=== PATIENT | male | born 1960 | race Caucasian/White ===

== ENCOUNTER 2017-05-14 07:50 | Emergency (ER) | payer OTHER ==
[~2017-05-14] VITALS: Ht 180.3 cm; Wt 100.0 kg
[~2017-05-14 07:50] MED LIST: FOLIC ACID1 MG; GOOD NEIGHBOR325 MG PO; HYDROCHLOROTHIA1 T14 PO; IBUPROFEN200 M1 PO; IRON65 M1; LOPRESSOR50 MG PO; NORCO 325 MG-101 TA1 PO; NORCO 325 MG-51 TA1 PO; PREDNISONE20 MG PO; VITAMIN C500 MG PO; ZYLOPRIM 300MG300 MG PO
[2017-05-14 08:26] LABS: EOS # 0.1 (0.04-0.40); EOS % 2.4 % (0.0-4.0); HEMATOCRIT 36.5 % (42.0-52.0); HEMOGLOBIN 12.1 g/dL (13.5-18.0); MEAN CELL VOLUME 101 fl (78-100); MEAN CORPUSCULAR HEMOGLOBIN 34 pg (27-31); MEAN CORPUSCULAR HGB CONC 33 g/dL (33-37); MONO # 0.5 (0.20-0.80); NEU # 2.4 (1.40-6.50); PLATELET COUNT 171 K/mm3 (130-400); RED CELL DISTRIBUTION WIDTH 13.1 % (11.5-14.5)
[2017-05-14 08:39] LABS: ALBUMIN 3.5 g/dL (3.5-5.0); BUN/CREATININE RATIO 30.8 (6.0-26.0); CALCIUM 8.5 mg/dL (8.4-10.2); TOTAL BILIRUBIN 0.8 mg/dL (0.2-1.3); TOTAL PROTEIN 6.6 g/dL (6.3-8.2)
[2017-05-14 08:47] LABS: POTASSIUM 3.8 mmol/L (3.6-5.0)
[2017-05-14 11:12] VITALS: BP 117/83
[2017-05-15] MEDS ORDERED: PRILOSEC 20MG20 MG PO (10:45)
== END 2017-05-14 10:57 | disposition home or self-care (01) ==
LOC: ED 07:50
PROVIDERS: Nurse Practitioner Primary Care
DX: K29.21 Alcoholic gastritis with bleeding (principal); K44.9 Diaphragmatic hernia without obstruction or gangrene; I10 Essential (primary) hypertension; F10.10 Alcohol abuse, uncomplicated; R01.1 Cardiac murmur, unspecified
CPT/HCPCS: C9113; J7030; Q9967

== ENCOUNTER 2017-05-15 10:31 | Emergency (ER) | payer OTHER ==
[~2017-05-15] VITALS: Ht 180.3 cm; Wt 97.9 kg
[2017-05-15] MEDS ORDERED: PRILOSEC 20MG20 MG PO (10:45)
[2017-05-15 11:26] LABS: BASO # 0.1 (0.02-0.10); EOS # 0.2 (0.04-0.40); EOS % 3.1 % (0.0-4.0); HEMOGLOBIN 7.8 g/dL (13.5-18.0); LYMPH# 1.9 (1.50-4.00); MEAN CELL VOLUME 103 fl (78-100); MEAN CORPUSCULAR HEMOGLOBIN 34 pg (27-31); MEAN CORPUSCULAR HGB CONC 33 g/dL (33-37); MEAN PLATELET VOLUME 10.3 fl (7.4-10.4); MONO # 0.5 (0.20-0.80); NEU # 3.3 (1.40-6.50); PLATELET COUNT 138 K/mm3 (130-400); RED BLOOD COUNT 2.32 M/mm3 (4.20-5.60); WHITE BLOOD COUNT 5.9 K/mm3 (4.8-10.8)
[2017-05-15 11:28] LABS: ALBUMIN 2.7 g/dL (3.5-5.0); CALCIUM 7.8 mg/dL (8.4-10.2); POTASSIUM 3.9 mmol/L (3.6-5.0); TOTAL BILIRUBIN 0.5 mg/dL (0.2-1.3)
[2017-05-15 11:37] LABS: PROTHROMBIN TIME 11.4 SECONDS (9.0-12.0)
[2017-05-15 12:31] VITALS: BP 102/64
== END 2017-05-15 12:39 | disposition short-term general hospital (02) ==
LOC: ED 10:31
PROVIDERS: Physician Assistant
DX: K92.2 Gastrointestinal hemorrhage, unspecified (principal); I10 Essential (primary) hypertension; K21.9 Gastro-esophageal reflux disease without esophagitis; K44.9 Diaphragmatic hernia without obstruction or gangrene; F10.10 Alcohol abuse, uncomplicated; R01.1 Cardiac murmur, unspecified
CPT/HCPCS: J3430; J7120

== ENCOUNTER → 2017-05-22 | Outpatient (CLI) | payer OTHER ==
[2017-05-15 12:31] VITALS: BP 102/64
[~2017-05-22] MED LIST changes: +PRILOSEC 20MG20 MG PO
[2017-05-22 18:21] LABS: HEMATOCRIT 30.5 % (42.0-52.0); HEMOGLOBIN 9.6 g/dL (13.5-18.0); MEAN CELL VOLUME 100 fl (78-100); MEAN CORPUSCULAR HEMOGLOBIN 32 pg (27-31); MEAN CORPUSCULAR HGB CONC 32 g/dL (33-37); MEAN PLATELET VOLUME 10.4 fl (7.4-10.4); PLATELET COUNT 491 K/mm3 (130-400); RED BLOOD COUNT 3.05 M/mm3 (4.20-5.60); RED CELL DISTRIBUTION WIDTH 14.7 % (11.5-14.5); WHITE BLOOD COUNT 9.8 K/mm3 (4.8-10.8)
[2017-05-22 18:23] LABS: ALBUMIN 3.6 g/dL (3.5-5.0); POTASSIUM 4.1 mmol/L (3.6-5.0); TOTAL BILIRUBIN 0.5 mg/dL (0.2-1.3); TOTAL PROTEIN 7.2 g/dL (6.3-8.2)
[2017-05-22 21:31] LABS: LYMPHOCYTE 27 % (20-51); MONOCYTE 10 % (3-10); NEUTROPHILS 59 % (42-75); POLYCHROMASIA 1+
== END ==
LOC: LAB 16:35
PROVIDERS: Internal Medicine
DX: R79.0 Abnormal level of blood mineral (principal); K25.0 Acute gastric ulcer with hemorrhage

== ENCOUNTER → 2017-05-28 | Outpatient (CLI) | payer OTHER ==
[2017-05-15 12:31] VITALS: BP 102/64
[2017-05-28 11:46] LABS: BASO # 0.1 (0.02-0.10); EOS % 0.2 % (0.0-4.0); HEMATOCRIT 34.8 % (42.0-52.0); HEMOGLOBIN 11.2 g/dL (13.5-18.0); LYMPH# 2.6 (1.50-4.00); MEAN CELL VOLUME 100 fl (78-100); MEAN CORPUSCULAR HEMOGLOBIN 32 pg (27-31); MEAN CORPUSCULAR HGB CONC 32 g/dL (33-37); RED BLOOD COUNT 3.49 M/mm3 (4.20-5.60); RED CELL DISTRIBUTION WIDTH 17.4 % (11.5-14.5); WHITE BLOOD COUNT 14.5 K/mm3 (4.8-10.8)
[2017-05-28 11:48] LABS: MONO # 1.6 (0.20-0.80); NEU # 9.8 (1.40-6.50); PLATELET COUNT 694 K/mm3 (130-400)
== END ==
LOC: LAB 11:10
PROVIDERS: Internal Medicine
DX: R79.0 Abnormal level of blood mineral (principal)

== ENCOUNTER → 2017-06-07 | Outpatient (CLI) | payer OTHER ==
[2017-05-15 12:31] VITALS: BP 102/64
[2017-06-07 15:55] LABS: BASO # 0.1 (0.02-0.10); EOS # 0.3 (0.04-0.40); HEMATOCRIT 41.2 % (42.0-52.0); HEMOGLOBIN 12.7 g/dL (13.5-18.0); LYMPH# 1.9 (1.50-4.00); MEAN CELL VOLUME 101 fl (78-100); MEAN CORPUSCULAR HEMOGLOBIN 31 pg (27-31); MEAN CORPUSCULAR HGB CONC 31 g/dL (33-37); MONO # 0.6 (0.20-0.80); NEU # 3.3 (1.40-6.50); PLATELET COUNT 302 K/mm3 (130-400); RED CELL DISTRIBUTION WIDTH 16.4 % (11.5-14.5); WHITE BLOOD COUNT 6.3 K/mm3 (4.8-10.8)
[2017-06-07 16:02] LABS: EOS % 5.3 % (0.0-4.0)
== END ==
LOC: LAB 15:39
PROVIDERS: Internal Medicine
DX: R79.0 Abnormal level of blood mineral (principal)

== ENCOUNTER → 2018-06-21 | Outpatient (CLI) | payer OTHER ==
[2018-06-21 10:49] LABS: EOS # 0.2 (0.04-0.40); HEMATOCRIT 42.4 % (42.0-52.0); HEMOGLOBIN 14.4 g/dL (13.5-18.0); LYMPH# 1.4 (1.50-4.00); MEAN CELL VOLUME 102 fl (78-100); MEAN CORPUSCULAR HEMOGLOBIN 35 pg (27-31); MEAN CORPUSCULAR HGB CONC 34 g/dL (33-37); MEAN PLATELET VOLUME 10.3 fl (7.4-10.4); MONO # 0.5 (0.20-0.80); PLATELET COUNT 161 K/mm3 (130-400); RED BLOOD COUNT 4.14 M/mm3 (4.20-5.60); RED CELL DISTRIBUTION WIDTH 12.4 % (11.5-14.5); WHITE BLOOD COUNT 4.1 K/mm3 (4.8-10.8)
[2018-06-21 11:17] LABS: EOS % 5.1 % (0.0-4.0)
[2018-06-21 12:13] LABS: ERYTHROCYTE SEDIMENTATION RATE 2 mm/hr (0-20)
[2018-06-21 12:45] LABS: ALBUMIN 4.2 g/dL (3.5-5.0); POTASSIUM 4.5 mmol/L (3.6-5.0); TOTAL BILIRUBIN 0.6 mg/dL (0.2-1.3); TOTAL PROTEIN 7.3 g/dL (6.3-8.2)
[2018-06-21 23:52] LABS: TESTOSTERONE 400 ng/dL (221-716)
== END ==
LOC: LAB 10:28
PROVIDERS: Internal Medicine
DX: Z12.5 Encounter for screening for malignant neoplasm of prostate (principal); Z00.00 Encounter for general adult medical examination without abnormal findings

== ENCOUNTER → 2018-07-01 | Outpatient (CLI) | payer OTHER | LOC: VAS 07:18 | DX: R93.5 Abnormal findings on diagnostic imaging of other abdominal regions, including retroperitoneum (principal); R74.0 Nonspecific elevation of levels of transaminase and lactic acid dehydrogenase [LDH] ==

== ENCOUNTER 2019-09-25 10:48 | Emergency (ER) | payer OTHER ==
[~2019-09-25] VITALS: Ht 177.8 cm; Wt 110.9 kg
[~2019-09-25 10:48] MED LIST changes: -AMLODIPINE BESYL5 MG PO; -AZITHROMYCIN 250MGPK PO; -LOPRESSOR 550 MG/TAB PO; -PANTOPRAZOLE SO40 MG PO; -PROAIR HFA0.09 MG/AC IH; -ZYLOPRIM 100MG100 MG PO
[2019-09-25 11:32] LABS: HEMATOCRIT 49.7 % (42.0-52.0); HEMOGLOBIN 16.9 g/dL (13.5-18.0); MEAN CELL VOLUME 98 fl (78-100); MEAN CORPUSCULAR HEMOGLOBIN 33 pg (27-31); MEAN CORPUSCULAR HGB CONC 34 g/dL (33-37); MEAN PLATELET VOLUME 9.5 fl (7.4-10.4); PLATELET COUNT 201 K/mm3 (130-400); RED BLOOD COUNT 5.09 M/mm3 (4.20-5.60); RED CELL DISTRIBUTION WIDTH 13.1 % (11.5-14.5); WHITE BLOOD COUNT 8.5 K/mm3 (4.8-10.8)
[2019-09-25] MEDS ORDERED: PANTOPRAZOLE SO40 MG PO (11:34)
[2019-09-25] MEDS ORDERED: ZYLOPRIM 100MG100 MG PO (11:34)
[2019-09-25] MEDS ORDERED: AMLODIPINE BESYL5 MG PO (11:34)
[2019-09-25] MEDS ORDERED: LOPRESSOR 550 MG/TAB PO (11:35)
[2019-09-25 11:41] LABS: ALBUMIN 4.1 g/dL (3.5-5.0); POTASSIUM 4.1 mmol/L (3.5-5.1); SODIUM 131 mmol/L (136-145)
[2019-09-25 11:42] LABS: CALCIUM 9.2 mg/dL (8.3-10.5)
[2019-09-25 11:43] LABS: GLUCOSE 108 mg/dL (75-110); TOTAL PROTEIN 7.8 g/dL (6.4-8.3)
[2019-09-25 11:45] LABS: TOTAL BILIRUBIN 1.3 mg/dL (0.2-1.2)
[2019-09-25 11:47] LABS: D-DIMER 0.31 mg/L FEU (0.15-0.50)
[2019-09-25 11:49] LABS: AST-SGOT 69 U/L (5-34)
[2019-09-25 11:50] LABS: ALT/SGPT 49 U/L (0-55)
[2019-09-25 11:51] LABS: LYMPHOCYTE 21 % (20-51); MONOCYTE 15 % (3-10); NEUTROPHILS 63 % (42-75)
[2019-09-25 11:54] LABS: URINE APPEARANCE CLEAR; URINE BILIRUBIN NEGATIVE (NEGATIVE); URINE BLOOD TRACE (NEGATIVE); URINE COLOR ORANGE; URINE GLUCOSE NEGATIVE (NEGATIVE); URINE KETONE NEGATIVE (NEGATIVE); URINE NITRATE NEGATIVE (NEGATIVE); URINE PROTEIN(semi-quant) TRACE mg/dL (NEGATIVE); URINE UROBILINOGEN NORMAL (NORMAL)
[2019-09-25 11:55] LABS: URINE LEUKOCYTE ESTERASE TRACE (NEGATIVE); URINE MUCUS PRESENT (NOT PRESENT)
[2019-09-25 11:56] LABS: CARBON DIOXIDE 16 mmol/L (22-29)
[2019-09-25 12:01] LABS: TROPONIN-I < 0.03 ng/mL (<0.030)
[2019-09-25] MEDS ORDERED: AZITHROMYCIN 250MGPK PO (15:32)
[2019-09-25] MEDS ORDERED: PROAIR HFA0.09 MG/AC IH (15:35)
[2019-09-25 16:22] VITALS: BP 133/94
== END 2019-09-25 16:00 | disposition home or self-care (01) ==
LOC: ED 10:48
PROVIDERS: Physician Assistant
DX: R05 Cough (principal); J18.9 Pneumonia, unspecified organism; R06.02 Shortness of breath; I10 Essential (primary) hypertension; K21.9 Gastro-esophageal reflux disease without esophagitis; Z20.828 Contact with and (suspected) exposure to other viral communicable diseases
CPT/HCPCS: J7120

== ENCOUNTER → 2019-09-25 | Outpatient (CLI) | payer OTHER ==
[~2019-09-25] MED LIST changes: +AMLODIPINE BESYL5 MG PO; +AZITHROMYCIN 250MGPK PO; +LOPRESSOR 550 MG/TAB PO; +PANTOPRAZOLE SO40 MG PO; +PROAIR HFA0.09 MG/AC IH; +ZYLOPRIM 100MG100 MG PO
== END ==
LOC: LAB 08:33
DX: R05 Cough (principal); R06.02 Shortness of breath; R07.89 Other chest pain; R19.7 Diarrhea, unspecified; R42 Dizziness and giddiness; R51 Headache

== ENCOUNTER → 2020-01-02 | Outpatient (CLI) | payer OTHER ==
[~2020-01-02] MED LIST changes: +AMLODIPINE BESYL5 MG PO; +AZITHROMYCIN 250MGPK PO; +LOPRESSOR 550 MG/TAB PO; +PANTOPRAZOLE SO40 MG PO; +PROAIR HFA0.09 MG/AC IH; +ZYLOPRIM 100MG100 MG PO
[2020-01-02 14:44] LABS: EOS # 0.3 (0.04-0.40); EOS % 4.4 % (0.0-4.0); HEMATOCRIT 41.1 % (42.0-52.0); HEMOGLOBIN 14.4 g/dL (13.5-18.0); LYMPH# 2.3 (1.50-4.00); MEAN CELL VOLUME 101 fl (78-100); MEAN CORPUSCULAR HGB CONC 35 g/dL (33-37); MEAN PLATELET VOLUME 9.5 fl (7.4-10.4); MONO # 0.6 (0.20-0.80); NEU # 2.4 (1.40-6.50); PLATELET COUNT 190 K/mm3 (130-400); RED BLOOD COUNT 4.06 M/mm3 (4.20-5.60); RED CELL DISTRIBUTION WIDTH 12.7 % (11.5-14.5); WHITE BLOOD COUNT 5.6 K/mm3 (4.8-10.8)
[2020-01-02 14:45] LABS: MEAN CORPUSCULAR HEMOGLOBIN 36 pg (27-31)
[2020-01-02 14:47] LABS: ALBUMIN 3.7 g/dL (3.5-5.0); POTASSIUM 4.3 mmol/L (3.5-5.1)
[2020-01-02 14:48] LABS: CALCIUM 8.3 mg/dL (8.3-10.5)
[2020-01-02 14:50] LABS: TOTAL PROTEIN 6.6 g/dL (6.4-8.3)
[2020-01-02 14:51] LABS: TOTAL BILIRUBIN 0.4 mg/dL (0.2-1.2)
[2020-01-02 15:36] LABS: ERYTHROCYTE SEDIMENTATION RATE 6 mm/hr (0-20)
== END ==
LOC: LAB 14:24
PROVIDERS: Internal Medicine
DX: Z00.00 Encounter for general adult medical examination without abnormal findings (principal); Z12.5 Encounter for screening for malignant neoplasm of prostate; M47.816 Spondylosis without myelopathy or radiculopathy, lumbar region; M43.16 Spondylolisthesis, lumbar region; R06.02 Shortness of breath; R06.00 Dyspnea, unspecified

== ENCOUNTER → 2020-01-16 | Outpatient (CLI) | payer OTHER | LOC: CARDREHAB 08:53 | DX: R06.02 Shortness of breath (principal) | CPT/HCPCS: A9500 ==

== ENCOUNTER → 2020-01-20 | Outpatient (CLI) | payer OTHER | LOC: LAB 08:58 | DX: Z20.828 Contact with and (suspected) exposure to other viral communicable diseases (principal) ==

== ENCOUNTER → 2020-02-13 | Outpatient (CLI) | payer OTHER | LOC: RAD 09:16 | DX: M51.36 Other intervertebral disc degeneration, lumbar region (principal); M43.16 Spondylolisthesis, lumbar region; R20.2 Paresthesia of skin ==

== ENCOUNTER → 2020-02-17 | Outpatient (CLI) | payer OTHER | LOC: RAD 09:01 | DX: M48.061 Spinal stenosis, lumbar region without neurogenic claudication (principal); M43.16 Spondylolisthesis, lumbar region; M51.26 Other intervertebral disc displacement, lumbar region; R20.2 Paresthesia of skin ==

== ENCOUNTER → 2020-03-12 | Outpatient (CLI) | payer OTHER | LOC: LAB 08:31 | DX: R06.02 Shortness of breath (principal) ==

== ENCOUNTER 2020-05-10 12:37 | Emergency (ER) | payer OTHER ==
[~2020-05-10] VITALS: Ht 180.3 cm; Wt 109.1 kg
[2020-05-10] MEDS ORDERED: METOPROLOL TAR100 M1 PO (13:13)
[2020-05-10] MEDS ORDERED: BUDESONIDE-FO10.2 GM (13:15)
[2020-05-10 13:55] LABS: HEMATOCRIT 47.6 % (42.0-52.0); HEMOGLOBIN 16.8 g/dL (13.5-18.0); MEAN CELL VOLUME 95 fl (78-100); MEAN CORPUSCULAR HEMOGLOBIN 34 pg (27-31); MEAN CORPUSCULAR HGB CONC 35 g/dL (33-37); MEAN PLATELET VOLUME 10.2 fl (7.4-10.4); PLATELET COUNT 278 K/mm3 (130-400); RED BLOOD COUNT 4.99 M/mm3 (4.20-5.60); RED CELL DISTRIBUTION WIDTH 12.3 % (11.5-14.5); WHITE BLOOD COUNT 8.6 K/mm3 (4.8-10.8)
[2020-05-10 13:57] LABS: ALBUMIN 3.7 g/dL (3.5-5.0); POTASSIUM 3.8 mmol/L (3.5-5.1); SODIUM 127 mmol/L (136-145)
[2020-05-10 13:58] LABS: CALCIUM 9.1 mg/dL (8.3-10.5)
[2020-05-10 14:00] LABS: GLUCOSE 114 mg/dL (75-110); TOTAL PROTEIN 7.8 g/dL (6.4-8.3)
[2020-05-10 14:01] LABS: CARBON DIOXIDE 18 mmol/L (22-29)
[2020-05-10 14:02] LABS: TOTAL BILIRUBIN 1.1 mg/dL (0.2-1.2)
[2020-05-10 14:04] LABS: D-DIMER 1.08 mg/L FEU (0.15-0.50)
[2020-05-10 14:05] LABS: AST-SGOT 40 U/L (5-34)
[2020-05-10 14:06] LABS: ALT/SGPT 38 U/L (0-55)
[2020-05-10 14:07] LABS: LYMPHOCYTE 11 % (20-51); NEUTROPHILS 70 % (42-75)
[2020-05-10 14:08] LABS: MONOCYTE 12 % (3-10)
[2020-05-10 14:24] LABS: TROPONIN-I < 0.03 ng/mL (<0.030)
[2020-05-10 15:04] LABS: ERYTHROCYTE SEDIMENTATION RATE 82 mm/hr (0-20)
[2020-05-10] MEDS ORDERED: TESSALON PERLE100 M1 PO (16:51)
[2020-05-10 17:22] VITALS: BP 113/84
== END 2020-05-10 17:22 | disposition home or self-care (01) ==
LOC: ED 12:37
PROVIDERS: Physician Assistant
DX: U07.1 COVID-19 (principal); M10.9 Gout, unspecified; Z79.51 Long term (current) use of inhaled steroids
CPT/HCPCS: J7030; Q9967

== ENCOUNTER → 2020-07-14 | Outpatient (CLI) | payer OTHER ==
[~2020-07-14] MED LIST changes: +BUDESONIDE-FO10.2 GM; +METOPROLOL TAR100 M1 PO; +TESSALON PERLE100 M1 PO
[2020-07-14 09:43] LABS: ALBUMIN 3.9 g/dL (3.5-5.0)
[2020-07-14 09:44] LABS: POTASSIUM 4.1 mmol/L (3.5-5.1)
[2020-07-14 09:45] LABS: CALCIUM 8.4 mg/dL (8.3-10.5)
[2020-07-14 09:46] LABS: TOTAL PROTEIN 7.6 g/dL (6.4-8.3)
[2020-07-14 09:48] LABS: TOTAL BILIRUBIN 0.9 mg/dL (0.2-1.2)
[2020-07-14 10:38] LABS: PROTHROMBIN TIME 11.1 SECONDS (9.0-12.0)
[2020-07-14 10:45] LABS: URINE APPEARANCE CLEAR; URINE BILIRUBIN NEGATIVE (NEGATIVE); URINE BLOOD NEGATIVE (NEGATIVE); URINE COLOR YELLOW; URINE GLUCOSE NEGATIVE (NEGATIVE); URINE KETONE NEGATIVE (NEGATIVE); URINE LEUKOCYTE ESTERASE NEGATIVE (NEGATIVE); URINE NITRATE NEGATIVE (NEGATIVE); URINE PROTEIN(semi-quant) TRACE mg/dL (NEGATIVE); URINE UROBILINOGEN NORMAL (NORMAL)
[2020-07-14 10:46] LABS: HEMOGLOBIN 16.5 g/dL (13.5-18.0); RED BLOOD COUNT 4.84 M/mm3 (4.20-5.60); RED CELL DISTRIBUTION WIDTH 13.8 % (11.5-14.5)
== END ==
LOC: LAB 08:59
PROVIDERS: Internal Medicine
DX: M43.16 Spondylolisthesis, lumbar region (principal)

== ENCOUNTER → 2020-12-04 | Outpatient (CLI) | payer OTHER | LOC: RAD 08:07 | DX: S82.841A Displaced bimalleolar fracture of right lower leg, initial encounter for closed fracture (principal) ==

== ENCOUNTER → 2021-06-03 | Outpatient (CLI) | payer OTHER ==
[2021-06-03 11:32] LABS: BASO # 0.05 K/mm3 (0.02-0.10); EOS # 0.11 K/mm3 (0.04-0.40); EOS % 1.9 % (0.0-4.0); HEMATOCRIT 49.6 % (42.0-52.0); HEMOGLOBIN 16.8 g/dL (13.5-18.0); LYMPH# 0.94 K/mm3 (1.50-4.00); MEAN CELL VOLUME 102 fl (78-100); MEAN CORPUSCULAR HEMOGLOBIN 34 pg (27-31); MEAN CORPUSCULAR HGB CONC 34 g/dL (33-37); MEAN PLATELET VOLUME 10.1 fl (7.4-10.4); MONO # 0.68 K/mm3 (0.20-0.80); NEU # 3.87 K/mm3 (1.40-6.50); PLATELET COUNT 244 K/mm3 (130-400); RED BLOOD COUNT 4.88 M/mm3 (4.20-5.60); RED CELL DISTRIBUTION WIDTH 12.1 % (11.5-14.5); WHITE BLOOD COUNT 5.7 K/mm3 (4.8-10.8)
[2021-06-03 11:41] LABS: ALBUMIN 4.2 g/dL (3.5-5.0); POTASSIUM 5.5 mmol/L (3.5-5.1)
[2021-06-03 11:42] LABS: CALCIUM 9.9 mg/dL (8.3-10.5)
[2021-06-03 11:43] LABS: TOTAL PROTEIN 7.9 g/dL (6.4-8.3)
[2021-06-03 11:45] LABS: TOTAL BILIRUBIN 1.1 mg/dL (0.2-1.2)
[2021-06-03 12:45] LABS: ERYTHROCYTE SEDIMENTATION RATE 16 mm/hr (0-20)
== END ==
LOC: LAB 07:58
PROVIDERS: Internal Medicine
DX: Z00.00 Encounter for general adult medical examination without abnormal findings (principal)

== ENCOUNTER → 2021-06-28 | Outpatient (CLI) | payer OTHER | LOC: LAB 08:45 | DX: Z00.00 Encounter for general adult medical examination without abnormal findings (principal); G47.19 Other hypersomnia; L98.9 Disorder of the skin and subcutaneous tissue, unspecified; I77.810 Thoracic aortic ectasia; I10 Essential (primary) hypertension; Q20.8 Other congenital malformations of cardiac chambers and connections; I34.0 Nonrheumatic mitral (valve) insufficiency; M48.062 Spinal stenosis, lumbar region with neurogenic claudication ==

== ENCOUNTER → 2021-08-04 | Day surgery (SDC) | payer OTHER | LOC: MSO 07:09 | DX: Z12.11 Encounter for screening for malignant neoplasm of colon (principal); D12.0 Benign neoplasm of cecum; D12.3 Benign neoplasm of transverse colon; K57.30 Diverticulosis of large intestine without perforation or abscess without bleeding; Z79.899 Other long term (current) drug therapy; Z87.891 Personal history of nicotine dependence | CPT/HCPCS: 00811; J2704; J7120 ==

== ENCOUNTER → 2021-08-10 | Outpatient (CLI) | payer OTHER | LOC: LAB 08:38 | DX: Q20.8 Other congenital malformations of cardiac chambers and connections (principal); M48.062 Spinal stenosis, lumbar region with neurogenic claudication; I34.0 Nonrheumatic mitral (valve) insufficiency; I10 Essential (primary) hypertension; I77.810 Thoracic aortic ectasia; D12.6 Benign neoplasm of colon, unspecified; L98.9 Disorder of the skin and subcutaneous tissue, unspecified; G47.19 Other hypersomnia; K90.9 Intestinal malabsorption, unspecified; E55.9 Vitamin D deficiency, unspecified ==

== ENCOUNTER → 2021-10-25 | Outpatient (CLI) | payer OTHER | LOC: VAS 07:51 → RAD 08:00 | DX: Q24.8 Other specified congenital malformations of heart (principal) ==

== ENCOUNTER → 2023-01-22 | Outpatient (CLI) | payer MEDICARE, OTHER ==
[~2023-01-22] MED LIST changes: +ATORVASTATIN CA40 MG PO; +MAXZIDE-25MG TA1 TAB PO; +VITAMIN D21250 MCG PO
[2023-01-22 09:03] LABS: BASO # 0.04 K/mm3 (0.02-0.10); EOS # 0.18 K/mm3 (0.04-0.40); EOS % 2.4 % (0.0-4.0); LYMPH# 1.72 K/mm3 (1.50-4.00); MEAN CELL VOLUME 106 fl (78-100); MEAN CORPUSCULAR HEMOGLOBIN 35 pg (27-31); MEAN CORPUSCULAR HGB CONC 33 g/dL (33-37); MEAN PLATELET VOLUME 9.7 fl (7.4-10.4); MONO # 0.78 K/mm3 (0.20-0.80); NEU # 4.71 K/mm3 (1.40-6.50); PLATELET COUNT 201 K/mm3 (130-400); RED BLOOD COUNT 3.98 M/mm3 (4.20-5.60); WHITE BLOOD COUNT 7.5 K/mm3 (4.8-10.8)
[2023-01-22 09:24] LABS: ALBUMIN 3.5 g/dL (3.4-4.8); POTASSIUM 3.9 mmol/L (3.5-5.1)
[2023-01-22 09:25] LABS: CALCIUM 8.9 mg/dL (8.3-10.5)
[2023-01-22 09:27] LABS: TOTAL PROTEIN 6.8 g/dL (6.2-8.1)
[2023-01-22 09:28] LABS: TOTAL BILIRUBIN 1.4 mg/dL (0.2-1.2)
== END ==
LOC: LAB 08:44
PROVIDERS: Internal Medicine
DX: I10 Essential (primary) hypertension (principal)

== ENCOUNTER → 2023-04-11 | Outpatient (CLI) | payer MEDICARE, OTHER ==
[2023-04-11 08:21] LABS: BASO # 0.06 K/mm3 (0.02-0.10); EOS # 0.31 K/mm3 (0.04-0.40); EOS % 5.5 % (0.0-4.0); HEMATOCRIT 41.3 % (42.0-52.0); HEMOGLOBIN 13.4 g/dL (13.5-18.0); LYMPH# 1.91 K/mm3 (1.50-4.00); MEAN CELL VOLUME 107 fl (78-100); MEAN CORPUSCULAR HEMOGLOBIN 35 pg (27-31); MEAN CORPUSCULAR HGB CONC 32 g/dL (33-37); MEAN PLATELET VOLUME 9.6 fl (7.4-10.4); MONO # 0.62 K/mm3 (0.20-0.80); NEU # 2.73 K/mm3 (1.40-6.50); PLATELET COUNT 333 K/mm3 (130-400); RED BLOOD COUNT 3.85 M/mm3 (4.20-5.60); RED CELL DISTRIBUTION WIDTH 14.4 % (11.5-14.5); WHITE BLOOD COUNT 5.7 K/mm3 (4.8-10.8)
[2023-04-11 08:27] LABS: ALBUMIN 3.3 g/dL (3.4-4.8)
[2023-04-11 08:28] LABS: CALCIUM 8.8 mg/dL (8.3-10.5)
[2023-04-11 08:32] LABS: TOTAL BILIRUBIN 1.2 mg/dL (0.2-1.2)
[2023-04-11 08:43] LABS: URINE APPEARANCE CLEAR; URINE BILIRUBIN NEGATIVE (NEGATIVE); URINE BLOOD NEGATIVE (NEGATIVE); URINE COLOR YELLOW; URINE GLUCOSE NEGATIVE (NEGATIVE); URINE KETONE NEGATIVE (NEGATIVE); URINE LEUKOCYTE ESTERASE NEGATIVE (NEGATIVE); URINE NITRATE NEGATIVE (NEGATIVE); URINE PROTEIN(semi-quant) 2+ (NEGATIVE); URINE UROBILINOGEN NORMAL (NORMAL); URINE WBC 0-1 /hpf (0-3)
[2023-04-11 10:12] LABS: ERYTHROCYTE SEDIMENTATION RATE 35 mm/hr (0-20)
== END ==
LOC: LAB 08:06
PROVIDERS: Internal Medicine
DX: R10.11 Right upper quadrant pain (principal)

== ENCOUNTER → 2023-06-07 | Outpatient (CLI) | payer MEDICARE, OTHER ==
[2023-06-07 11:46] LABS: BASO # 0.01 K/mm3 (0.02-0.10); EOS # 0.25 K/mm3 (0.04-0.40); EOS % 4.5 % (0.0-4.0); HEMATOCRIT 40.1 % (42.0-52.0); HEMOGLOBIN 13.2 g/dL (13.5-18.0); LYMPH# 2.19 K/mm3 (1.50-4.00); MEAN CELL VOLUME 99 fl (78-100); MEAN CORPUSCULAR HEMOGLOBIN 33 pg (27-31); MEAN CORPUSCULAR HGB CONC 33 g/dL (33-37); MEAN PLATELET VOLUME 9.9 fl (7.4-10.4); MONO # 0.43 K/mm3 (0.20-0.80); NEU # 2.72 K/mm3 (1.40-6.50); PLATELET COUNT 236 K/mm3 (130-400); RED BLOOD COUNT 4.06 M/mm3 (4.20-5.60); RED CELL DISTRIBUTION WIDTH 13.3 % (11.5-14.5); WHITE BLOOD COUNT 5.6 K/mm3 (4.8-10.8)
[2023-06-07 11:55] LABS: ALBUMIN 3.7 g/dL (3.4-4.8)
[2023-06-07 11:57] LABS: TOTAL PROTEIN 6.8 g/dL (6.2-8.1)
[2023-06-07 11:59] LABS: TOTAL BILIRUBIN 0.6 mg/dL (0.2-1.2)
[2023-06-07 12:04] LABS: MAGNESIUM 2.16 mg/dL (1.60-2.60)
[2023-06-07 21:04] LABS: FOLATE (FOLIC ACID) 8.9 ng/mL (2.0-20.0)
== END ==
LOC: LAB 11:27
PROVIDERS: Internal Medicine
DX: I25.10 Atherosclerotic heart disease of native coronary artery without angina pectoris (principal); E78.2 Mixed hyperlipidemia; E83.110 Hereditary hemochromatosis; K85.20 Alcohol induced acute pancreatitis without necrosis or infection; R20.2 Paresthesia of skin

== ENCOUNTER → 2023-12-22 | Outpatient (CLI) | payer MEDICARE, OTHER | LOC: RAD 07:11 | DX: I50.20 Unspecified systolic (congestive) heart failure (principal); I34.0 Nonrheumatic mitral (valve) insufficiency; I42.2 Other hypertrophic cardiomyopathy ==

== ENCOUNTER → 2024-08-04 | Outpatient (CLI) | payer MEDICARE, OTHER ==
[2024-08-04 11:16] LABS: BASO # 0.03 K/mm3 (0.02-0.10); EOS # 0.25 K/mm3 (0.04-0.40); EOS % 4.8 % (0.0-4.0); HEMATOCRIT 43.1 % (42.0-52.0); HEMOGLOBIN 13.6 g/dL (13.5-18.0); LYMPH# 1.87 K/mm3 (1.50-4.00); MEAN CELL VOLUME 102 fl (78-100); MEAN CORPUSCULAR HEMOGLOBIN 32 pg (27-31); MEAN CORPUSCULAR HGB CONC 32 g/dL (33-37); MEAN PLATELET VOLUME 9.9 fl (7.4-10.4); MONO # 0.65 K/mm3 (0.20-0.80); PLATELET COUNT 271 K/mm3 (130-400); RED BLOOD COUNT 4.21 M/mm3 (4.20-5.60); RED CELL DISTRIBUTION WIDTH 13.1 % (11.5-14.5); WHITE BLOOD COUNT 5.2 K/mm3 (4.8-10.8)
[2024-08-04 11:20] LABS: CALCIUM 9.1 mg/dL (8.3-10.5)
[2024-08-04 11:22] LABS: TOTAL PROTEIN 7.6 g/dL (6.2-8.1)
[2024-08-04 11:23] LABS: TOTAL BILIRUBIN 0.4 mg/dL (0.2-1.2)
[2024-08-04 11:27] LABS: DIRECT BILIRUBIN 0.2 mg/dL (0.0-0.5)
[2024-08-04 11:29] LABS: MAGNESIUM 1.72 mg/dL (1.60-2.60)
[2024-08-05 00:49] LABS: TESTOSTERONE 684 ng/dL (221-716)
[2024-08-05 02:57] LABS: HEPATITIS C VIRUS ANTIBODY Nonreactive (Nonreactiv)
== END ==
LOC: LAB 10:50
PROVIDERS: Internal Medicine
DX: Z12.5 Encounter for screening for malignant neoplasm of prostate (principal); Z11.59 Encounter for screening for other viral diseases; M10.9 Gout, unspecified; E78.2 Mixed hyperlipidemia; I42.2 Other hypertrophic cardiomyopathy; E83.110 Hereditary hemochromatosis; K90.9 Intestinal malabsorption, unspecified; F52.21 Male erectile disorder